=== PATIENT | female | born 1955 ===

== ENCOUNTER → 2023-12-20 06:24 | Day surgery (SDC) | payer MEDICARE, OTHER, SELFPAY | LOC: GI 06:24 | PROVIDERS: ATTENDING PHYSICIAN Specialist | DX: Z12.11 Encounter for screening for malignant neoplasm of colon (principal); D12.3 Benign neoplasm of transverse colon; K57.30 Diverticulosis of large intestine without perforation or abscess without bleeding | CPT/HCPCS: 45385; 88305 ==

== ENCOUNTER 2024-06-06 16:35 | Emergency (ER) | payer MEDICARE, OTHER, SELFPAY ==
[2024-06-06 16:44] VITALS: BP 180/104
--- NOTE | 2024-06-06 17:56 | ED.SKININJ ---
HPI-Injury
General
Chief Complaint: Skin Surface Trauma
Source: patient
Time Seen by Provider: 06/06/24 17:45
History of Present Illness-Injury
Initial Injury comments:
68yoF presenting with her for evaluation of a right lower leg laceration that was sustained about 1 hour prior to arrival. Patient was walking in her backyard when she accidentally struck her R anterior lower leg against a tree stump causing
a laceration. The laceration appeared deep which prompted her to come to the ED. No active bleeding on arrival. Last tetanus 6 years ago.
Phy Exam
General Physical Exam
General Presentation: well appearing and no apparent distress
General age: appears stated age
General Skin: warm and dry
General Habitus: normal
General Mental: alert
ENT Exam
ENT Exam: normocephalic
Skin Exam
Skin Exam: normal color, warm/dry and other (Approx 10cm curved laceration to R anterior lower leg with flap. Exposed dermis. No active bleeding. No surrounding bony tenderness. )
Psychiatric Exam
Psychiatric Exam: normal mood/affect
Course
Vital Signs
Initial and Last Documented VS:
Initial Vital Signs
Temp Pulse Resp BP Pulse Ox
98.0 F 71 18 180/104 97
06/06/24 16:44 06/06/24 16:44 06/06/24 16:44 06/06/24 16:44 06/06/24 16:44
Last Documented Vital Signs
Temp Pulse Resp BP Pulse Ox
98.0 F 72 18 182/88 98
06/06/24 16:44 06/06/24 18:53 06/06/24 18:53 06/06/24 18:53 06/06/24 18:53
Procedures
Laceration Closure
Right Lower Anterior Leg:
Status of Wound: clean
Size of Wound in cm: 10
Description of Wound Edges: flap-poorly vascularized
Preparation: cleaned with saline and cleaned with Betadine
Anesthesia: 1% Lidocaine with epi
Revision/Debridement: minor revision
Wound exploration: explored to base- no FB
Type of Closure: single layer closure
Skin Closure Material: 3-0 nylon and 4-0 nylon
Number of sutures: 10
MDM/Problems Addressed
Differential Diagnosis Includes:
68yoF here with a R lower leg laceration after cutting herself on a tree stump. Curved laceration with a flap noted on exam. No active bleeding or FB present. Wound was irrigated with saline and repaired as above. Unable to completely close wound
due to the flap being superficial and poorly vascularized. Home wound care discussed. Advised f/u with PCP or return to the ED in 10-14 days for suture removal or sooner with any signs of infection. She expressed understanding and is agreeable to
plan. She was discharged in stable condition.
*Critical Care Note
Total Time (30-74mins, 75-104mins- exclusive of procedures): Not Applicable
ED Attending Note
-
Portions of this chart may have been created with voice recognition software.� Occasional wrong word or��sound alike� substitutions may have occurred due to the inherent limitations of voice recognition software.
Discharge Plan
Departure
Patient Disposition: Home (Routine Discharge)
Date of Disposition: 06/06/24
Time of Disposition: 18:41
Patient with high blood pressure during this ER visit?: Yes
Discharge Problem:
Laceration of lower leg, right
Instructions: Laceration Repair With Stitches (DC)
Activity Restrictions/Additional Instructions:
Change dressings daily. Keep wound clean and dry.
Please follow-up with your family doctor or return to the ED in 10-14 days for suture removal. Return sooner with any signs of infection (redness, drainage, warmth, fevers).
Interventions
Interventions:
*Risk Screen - Suicide Last Done: 06/06/24 16:44
*General Assessment Last Done: 06/06/24 16:44
*Neglect/Abuse Screening Last Done: 06/06/24 16:44
*ED COVID-19 Vaccine History Last Done: 06/06/24 16:44
*Nursing Disposition Last Done: 06/06/24 18:53
ED-Skin Assessment Last Done: 06/06/24 16:56
Discharge Date and Time
Discharge Date/Time: 06/06/24 18:54
Print Language: DANISH
[2024-06-06 18:53] VITALS: BP 182/88
== END 2024-06-06 18:54 | disposition home or self-care (01) ==
LOC: EMR 16:35
PROVIDERS: EMERGENCY PHYSICIAN Emergency Medicine; FAMILY PHYSICIAN Family Medicine
DX: S81.811A Laceration without foreign body, right lower leg, initial encounter (principal); W22.8XXA Striking against or struck by other objects, initial encounter; R03.0 Elevated blood-pressure reading, without diagnosis of hypertension
CPT/HCPCS: 99282; 12004